=== PATIENT | male | born 1940 | race Hispanic/Latino ===

== ENCOUNTER 2017-10-21 01:52 | Inpatient (IN) | payer OTHER ==
[2017-10-21] MEDS ORDERED: Morphine 4 MG/ML VIAL ONE (03:29)
[2017-10-21] MEDS ORDERED: Ondansetron ODT 4 MG TAB PO PRN (04:31)
[2017-10-21] MEDS ORDERED: Morphine 4 MG/ML VIAL SLOW IVP PRN (04:31)
[2017-10-21] MEDS ORDERED: Dextrose 50% Abboject 50 ML SYRINGE SLOW IVP PRN (04:31)
[2017-10-21] MEDS ORDERED: hydrALAZINE 20 MG/ML VIAL SLOW IVP PRN (04:31)
[2017-10-21] MEDS ORDERED: Ondansetron HCl/PF 4 MG/2 ML Vial IVP PRN ×2 (04:31→16:40)
[2017-10-21] MEDS ORDERED: Dextrose 5% in Water 1,000 ML IV PRN (04:31)
[2017-10-21 04:35] LABS: #Lymphocytes 0.9 thou/uL (1.20-3.40); #Monocytes 0.5 thou/uL (0.11-0.59); #Neutrophils 8.7 thou/uL (1.40-6.50); %Basophils 0.2 % (0.0-1.0); %Eosinophils 0.2 % (0.0-10.0); %Monocytes 4.9 % (0.0-10.0); %Neutrophils 85.7 % (42.0-75.0); Hemoglobin 8.3 g/dL (14.0-18.0); Mean Corpuscular HGB CONC 33.4 g/dL (32.0-36.0); Mean Corpuscular Hemoglobin 31.4 pg (27.0-31.0); Mean Corpuscular Volume 94.2 fl (80.0-94.0); Mean Platelet Volume 6.9 fL (7.4-10.4); Platelet Count 231 thou/uL (130-400); RBC Distribution Width 12.2 % (11.5-14.5); Red Blood Cell (RBC) Count 2.64 mill/uL (4.70-6.10); White Blood Cell (WBC) Count 10.2 thou/uL (4.8-10.8)
[2017-10-21 04:56] LABS: ALT (SGPT) 10 U/L (8-55); AST (SGOT) 15 U/L (5-34); Albumin 3.5 g/dL (3.4-4.8); Alkaline Phosphatase 75 U/L (40-150); Anion Gap 15 mmol/L (10-20); BUN (Urea Nitrogen) 14 mg/dL (8.4-25.7); Bilirubin, Total 0.4 mg/dL (0.2-1.2); Calc. Creatinine Clearance 0 mL/min (70-130); Calcium 9.2 mg/dL (7.8-10.44); Carbon Dioxide 19 mmol/L (23-31); Chloride 97 mmol/L (98-107); Estimated GFR-MDRD 48; Globulin 3.2 g/dL (2.4-3.5); Glucose 301 mg/dL (83-110); Potassium 5.5 mmol/L (3.5-5.1); Protein, Total 6.7 g/dL (5.8-8.1); Sodium 125 mmol/L (136-145)
[2017-10-21] MEDS ORDERED: Insulin Regular 300 UNITS/3 ML VIAL IVP SCH (05:00)
[2017-10-21] MEDS ORDERED: Insulin Regular 300 UNITS/3 ML VIAL ONE (05:06)
[2017-10-21 05:43] LABS: CKMB 1.5 ng/mL (0-6.6); Troponin I Less than 0.010 ng/mL (< 0.028)
[2017-10-21] MEDS ORDERED: Ketorolac Tromethamine 30 MG/ML VIAL IVP SCH (06:00)
--- NOTE | 2017-10-21 06:33 | HP ---
DATE OF ADMISSION: 10/21/2017 ATTENDING PHYSICIAN: Francisco Contreras D.O. TRAUMA ACTIVATION: Not applicable. HISTORY OF PRESENT ILLNESS: Mr. Carlso Mooney is a 77-year-old Italian speaking only prisoner, who presented to [facility] ER status post fall. He was evaluated in the emergency and found to have a l eft femur fracture. Orthopedic Surgery was notified and Trauma Service was asked to admit. Upon my evaluation, the patient has chief complaint of left hip and leg pain. He states that he fell out of his bed at the [facility]. ER documentation indicates that he was in the bottom bunk; however, the pa tient stated that he thought the height of the bed was up to 6-7 feet height. All information was ob tained with the use of a highway engineering teacher phone. ALLERGIES: The patient denies. CURRENT MEDICATIONS: Include Cyanocobalamin 1000 mcg intramuscularly every 4 weeks, metformin 1000 m g p.o. b.i.d., Novolin 10 units q.a.m., Novolin 5 units at bedtime, Novolin 2 units b.i.d. 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 PAST SURGICAL HISTORY: Right BKA, left arm surgery and a left cataract surgery. SOCIAL HISTORY: The patient currently resides in [facility] correctional facility. Denies alcohol or tobacco or illicit drug use. FAMILY HISTORY: Noncontributory. REVIEW OF SYSTEMS: Negative except as indicated in the HPI. PHYSICAL EXAMINATION: VITAL SIGNS: Blood pressure 113/66, pulse 108, respirations 18, O2 sat 100% on room air, temperature 97.7. GENERAL: The patient is resting in bed, in no acute distress. HEAD: Normocephalic, atraumatic. EYES: Pupils PERRL. Extraocular movements are intact. NECK: Supple. Trachea is midline. CHEST: Atraumatic. LUNGS: Normal work of breathing, symmetric rise. Lungs clear to auscultation bilaterally. CARDIOVASCULAR: Regular rate and rhythm. GASTROINTESTINAL: Abdomen is soft, nontender, nondistended. Bowel sounds are positive. BACK: Exam is reported as being within normal limits. MUSCULOSKELETAL: Bilateral upper extremities within normal limits. Right lower extremity BKA noted. Left lower extremity, range of motion limited secondary to pain. There is tenderness to palpation of the left hip and left thigh. LABORATORY DATA AND X-RAY FINDINGS: WBC 10.2, hemoglobin 8.3, hematocrit 24.9, platelet count 231. Chemistries are pending. Official read for chest x-ray is pending. Official read for hip x-ray is p ending. There is evidence of a left intertrochanteric and left femur fracture. Left femur x-ray is significant for the same. ASSESSMENT: 1. Status post fall. 2. Acute traumatic pain. 3. Left femur fracture. 4. Diabetes. 5. Chronic anemia. PLAN: Admit to Trauma Services. The patient will be n.p.o. Orthopedic surgery has been notified an d plans to evaluate the patient for operative intervention to his injury. Perioperative pain managem ent. Postoperative PT and OT. Gastritis and deep venous thrombosis prophylaxis as appropriate. Acc u-Cheks and sliding scale insulin until patient postoperative. Of note, there is a question from the emergency room staff as to whether or not the patient requires chronic oxygen at his [facility]. The patient indicates that he does not wear oxygen on a regular basis, but there has been difficulty com municating with him secondary to language barrier. He is currently on 2 liters nasal cannula. We wi ll wean as appropriate. Plan for admission was discussed with the patient and he vocalized keeleyan ed. All questions were answered at the time of this dictation. Trauma attending has been notified of admission and plan was discussed with him at this time.
--- NOTE | 2017-10-21 08:25 | RAD ---
FRONTAL VIEW CHEST: COMPARISON: No prior comparison. INDICATION: Fall, pain. FINDINGS: There is no lobar consolidation. Cardiac silhouette is enlarged. No significant effusion, or discre te pneumothorax. There is vascular calcification. Osseous degenerative change is seen. IMPRESSION: No lobar consolidation. POS: [facility]
--- NOTE | 2017-10-21 08:26 | RAD ---
LEFT HIP: 2-3 VIEW SERIES INDICATION: Fall with trauma, pain. FINDINGS: Comminuted proximal left femoral fracture is present centered about the proximal diaphysis and extend ing cephalad to the intertrochanteric aspect with avulsion of the lesser trochanter. Femoral head re lashell seated within the acetabulum. IMPRESSION: Comminuted proximal left femoral fracture. POS: [facility]
--- NOTE | 2017-10-21 08:28 | RAD ---
LEFT FEMUR 2 VIEWS: INDICATION: Injury, pain. FINDINGS: There is a comminuted fracture partially visualized which is described on concurrent hip radiograph r eport. Reference separate report for further details. There is degenerative change of the knee inco mpletely assessed. Vascular calcifications are present. IMPRESSION: Comminuted proximal left femoral fracture as is discussed on the concurrent hip radiograph series. POS: [facility]
[2017-10-21] MEDS ORDERED: Famotidine/PF 20 mg/2ml Vial SLOW IVP SCH (09:00)
[2017-10-21] MEDS ORDERED: Propofol 200 MG/20 ML VIAL ONE (09:10)
[2017-10-21] MEDS ORDERED: Glycopyrrolate 0.2 MG/ML 5 ML SYRINGE ONE (09:10)
[2017-10-21] MEDS ORDERED: PHENYLEPHRINE-NS 100 MCG/ML 10 ML SYRINGE ONE (09:10)
[2017-10-21] MEDS ORDERED: Ondansetron HCl/PF 4 MG/2 ML Vial ONE (09:10)
[2017-10-21] MEDS ORDERED: Lidocaine 1% PF 5 ML VIAL ONE (09:10)
[2017-10-21] MEDS ORDERED: Succinylcholine Chloride 20 MG/ML 10 ml SYRINGE FS ONE (09:10)
[2017-10-21] MEDS ORDERED: ePHEDrine/0.9% NaCl/PF SYRINGE 50 mg/10 ml ONE (09:10)
[2017-10-21] MEDS: Acetaminophen 500 MG TAB PO SCH ×4 (10:16→22:39)
[2017-10-21] MEDS: Sodium Chloride 0.9% 1,000 ML IV SCH ×2 (10:20→20:29)
[2017-10-21] MEDS: Senokot S 8.6-50 MG TAB PO SCH ×2 (11:09→20:28)
[2017-10-21] MEDS: HumaLOG 300 UNITS/3 ML VIAL SC PRN (12:47)
[2017-10-21] MEDS ORDERED: Fentanyl 100 MCG/2 ML VIAL ONE ×2 (13:28→14:21)
[2017-10-21] MEDS ORDERED: CEFAZOLIN/Water 2 GM/20 ML SYRINGE SLOW IVP SCH (13:30)
[2017-10-21] MEDS ORDERED: CEFAZOLIN/Water 2 GM/20 ML SYRINGE ONE (14:21)
--- NOTE | 2017-10-21 15:27 | EKG ---
Test Reason : HIP FX Blood Pressure : / mmHG Vent. Rate : 102 BPM Atrial Rate : 102 BPM P-R Int : 128 ms QRS Dur : 092 ms QT Int : 352 ms P-R-T Axes : 036 050 011 degrees QTc Int : 458 ms Sinus tachycardia Otherwise normal ECG Confirmed by FLORINA STAFFORD M.D. ([id number]), commercial production editor OSORIO HUTCHINSON ([id number]) on 10/21/2017 3:26:32 PM Referred By: Confirmed By:FLORINA STAFFORD M.D.
--- NOTE | 2017-10-21 16:33 | RAD ---
RIGHT HIP TWO VIEW 10/21/17 HISTORY: Nail insertion. COMPARISON: Hip radiographs 10/21/17. FINDINGS: Although the order states right hip, these images are the left hip. Satisfactory appearance of the intramedullary nail placement of the proximal spiral fracture of the f emur. No hardware complication. IMPRESSION: Satisfactory postoperative appearance. POS: [facility]
[2017-10-21] MEDS ORDERED: Promethazine HCl 25 MG/ML VIAL SLOW IVP PRN (16:40)
[2017-10-21] MEDS ORDERED: HYDROmorphone 2 MG/ML VIAL SLOW IVP PRN (16:40)
[2017-10-21] MEDS ORDERED: Promethazine HCl 25 MG/ML VIAL IM PRN (16:40)
[2017-10-21 18:15] LABS: Anion Gap 11 mmol/L (10-20); BUN (Urea Nitrogen) 16 mg/dL (8.4-25.7); Calc. Creatinine Clearance 0 mL/min (70-130); Calcium 8.6 mg/dL (7.8-10.44); Carbon Dioxide 20 mmol/L (23-31); Chloride 101 mmol/L (98-107); Estimated GFR-MDRD 60; Glucose 297 mg/dL (83-110); Hemoglobin 10.1 g/dL (14.0-18.0); Platelet Count 259 thou/uL (130-400); Potassium 5.2 mmol/L (3.5-5.1); Sodium 127 mmol/L (136-145)
--- NOTE | 2017-10-21 19:41 | CON ---
DATE OF CONSULTATION: 10/21/2017 HISTORY OF PRESENT ILLNESS: Mr. Mooney is a 77-year-old male who is a prisoner. Patient reports th at he fell out of a bed and had immediate pain and deformity in the left thigh and hip area and inabi lity to ambulate. The patient was brought to the emergency room and x-rays revealed a comminuted dis placed intertrochanteric and subtrochanteric fracture of the left proximal femur. Patient denies any neurologic complaints in the left lower extremity and has no other complaints elsewhere. PAST MEDICAL HISTORY: Medical illnesses, type 2 diabetes, glaucoma, chronic anemia, history of DKA i n the right lower extremity, unspecified breathing abnormalities. PAST SURGICAL HISTORY: BKA on the right. Left arm surgery, left cataract surgery. ALLERGIES: None. CURRENT MEDICATIONS: Cyanocobalamin, metformin, Novolin. PHYSICAL EXAMINATION: GENERAL: The patient is a pleasant male, cooperative with the examination. VITAL SIGNS: The patient is afebrile, pulse 100, respiratory rate 18, blood pressure 103/65, O2 satu ration is 100%. HEENT: Unremarkable for age. Cranial nerves II-XII grossly intact. NECK: Has good range of motion without pain. BACK: Thoracic and lumbar spine nontender to palpation. LUNGS: Clear bilaterally. HEART: Regular rate and rhythm. ABDOMEN: Soft, nontender. Bowel sounds positive. : Not done. EXTREMITIES: The left lower extremity has some deformity in the left thigh area. There is swelling in the left thigh. The patient is able to flex and extend his ankle and toes well, has good sensatio n and good peripheral pulses in the left foot and ankle. LABORATORY DATA: CBC shows white count 10.2, hemoglobin 8.3, hematocrit 24.9. Chemistries: Sodium is low at 125, potassium is high at 5.5, creatinine is 1.43, BUN of 14, glucose 301 at 4:00 this morn ing. The latest one was 261. X-RAYS: X-rays of the left femur shows comminuted fracture in the intertrochanteric and subtrochante michelle region with displacement. The femoral artery is noted to be significantly calcified with running down the medial aspect of the thigh. IMPRESSION: 1. Comminuted intertrochanteric and subtrochanteric fracture of the left femur. 2. Diabetes. 3. History of chronic anemia. PLAN: The patient started off anemic. He will lose blood from the fracture and from the surgery bec ause his hemoglobin is 8.3. I will go ahead and give him 1 unit of packed red blood cells today prio r to surgery. As far as his left femur is concerned, he will require open reduction internal fixatio n of the left femur. We will plan on using a long intramedullary interlocking steff. Potential risks with the condition of surgery include but are not limited to infection, bleeding, pain, damage to blo od vessels or nerves, nonunion or malunion. The patient may require additional surgery, DVT and PE f ormation. The patient's questions were answered through an optical scientist since he primarily speaks [place] j[place]. The patient's questions were answered and they agreed with the procedure.
[2017-10-21] MEDS ORDERED: HYDROcodone/Acetaminophen 10/325 mg Tablet PO PRN ×2 (20:19)
[2017-10-21] MEDS: Sodium Chloride 0.9% 500 ML IV SCH (20:34)
[2017-10-21] MEDS ORDERED: FLU VACC TS2017-18 (>65YR) 0.5 ML SYRINGE IM ONE (21:00)
[2017-10-21] MEDS ORDERED: Prevnar 13-Val Conj/PF 0.5 ML SYRINGE IM ONE (21:00)
--- NOTE | 2017-10-21 21:16 | OP ---
DATE OF OPERATION: 10/21/2017 PREOPERATIVE DIAGNOSIS: Comminuted intertrochanteric and subtrochanteric fracture of the left femur. POSTOPERATIVE DIAGNOSIS: Comminuted intertrochanteric and subtrochanteric fracture of the left femur . PROCEDURE: Interlocking intramedullary rodding of the left femur. SURGEON: Jose Raygoza M.D. ANESTHESIA: General. TECHNIQUE: The patient was given preoperative IV antibiotics, taken to the operating room and placed in supine position. Satisfactory general anesthesia was performed. The patient was then placed in a supine position on the fracture table and traction was applied to well-padded left foot and ankle. C-arm verified good alignment of the comminuted intertrochanteric and subtrochanteric fractures of t he left proximal femur. The lateral aspect of the hip and the entire thigh and proximal leg was ster ilely prepped and draped in the usual fashion. A 2.5 inch incision was made proximal to the greater trochanter and under fluoroscopic visualization, a guide pin was placed through the greater trochante r and was then over reamed with a 9 mm x 340 mm left trochanteric fixation nail was then inserted int o the proximal aspect of the femur down to the distal femur at the level of the proximal aspect of th e patella and do a separate 2 inch incision more on the lateral aspect of the thigh after placing a g uide pin and over reamed in the lateral cortex. A 100 mm helical blade was inserted through the prox imal aspect of the steff and into the femoral neck and head and this was then locked in place through t he locking mechanism in the proximal aspect of the intramedullary steff. Two 5 mm interlocking screws were then inserted distally from lateral to medial. This provided excellent reduction and internal f ixation of all the fractures of the proximal femur. The wounds were then irrigated with antibiotic s olution and were closed using #1 Vicryl for the deep tissue and the skin incisions were closed with s kin kentrell. Sterile dressing was applied. The patient was taken out of traction. He was awakened, extubated, and transferred to recovery room in stable condition. ESTIMATED BLOOD LOSS: 50 mL. COMPLICATIONS: None.
--- NOTE | 2017-10-21 23:35 | PRG ---
DATE OF SERVICE: 10/21/2017 SUBJECTIVE: This is a 77-year-old gentleman admitted earlier today status post fall with femur fract ure. He has recently returned to the floor from the PACU. Upon my evaluation, the patient vocalized no complaint. OBJECTIVE: VITAL SIGNS: 96% on room air, heart rate 110, blood pressure 97/57. GENERAL: Patient resting in bed, in no acute distress. Breathing is nonlabored. GCS is 15. NEUROLOGIC: No focal deficit is noted. ASSESSMENT: Status post mechanical fall. Postop day 0, status post interlocking intramedullary marilyn ing of left femur. Tachycardia associated with hypotension and anemia on presentation. Patient did receive 1 unit of PRBC in the operating room. We will recheck H&H stat. A 500 mL fluid bolus. We w ill also check a serum cortisol. Otherwise, continue care as ordered. Work with physical therapy an d occupational therapy tomorrow. Perioperative pain management.
[2017-10-22] MEDS: HumaLOG 300 UNITS/3 ML VIAL SC PRN ×3 (00:21→18:47)
[2017-10-22] MEDS: Sodium Chloride 0.9% 500 ML IV SCH (00:51)
[2017-10-22] MEDS ORDERED: Insulin Regular 300 UNITS/3 ML VIAL SC SCH (01:30)
[2017-10-22] MEDS ORDERED: Hydrocortisone Sod Succ/PF 100 mg/2 ml Vial IVP SCH (01:30)
[2017-10-22 05:58] LABS: #Lymphocytes 1.7 thou/uL (1.20-3.40); #Monocytes 0.7 thou/uL (0.11-0.59); #Neutrophils 10.2 thou/uL (1.40-6.50); %Eosinophils 0.1 % (0.0-10.0); %Lymphocytes 13.2 % (21.0-51.0); %Monocytes 5.3 % (0.0-10.0); %Neutrophils 81.4 % (42.0-75.0); Hemoglobin 9.2 g/dL (14.0-18.0); Mean Corpuscular HGB CONC 34.1 g/dL (32.0-36.0); Mean Corpuscular Hemoglobin 31.3 pg (27.0-31.0); Mean Corpuscular Volume 91.8 fl (80.0-94.0); Mean Platelet Volume 6.7 fL (7.4-10.4); Platelet Count 258 thou/uL (130-400); Red Blood Cell (RBC) Count 2.94 mill/uL (4.70-6.10); White Blood Cell (WBC) Count 12.5 thou/uL (4.8-10.8)
[2017-10-22] MEDS: Acetaminophen 500 MG TAB PO SCH ×3 (06:12→18:52)
[2017-10-22] MEDS: Hydrocortisone Sod Succ/PF 100 mg/2 ml Vial IVP SCH ×2 (06:13→15:34)
[2017-10-22 06:24] LABS: Anion Gap 11 mmol/L (10-20); BUN (Urea Nitrogen) 13 mg/dL (8.4-25.7); Calc. Creatinine Clearance 64 mL/min (70-130); Carbon Dioxide 21 mmol/L (23-31); Chloride 101 mmol/L (98-107); Estimated GFR-MDRD 64; Glucose 213 mg/dL (83-110); Magnesium 1.9 mg/dL (1.6-2.6); Phosphorus 2.4 mg/dL (2.3-4.7); Potassium 4.3 mmol/L (3.5-5.1); Sodium 129 mmol/L (136-145)
[2017-10-22] MEDS: Enoxaparin Sodium 30 MG/0.3 ML SYRINGE SC SCH (09:14)
[2017-10-22] MEDS: Senokot S 8.6-50 MG TAB PO SCH ×2 (09:15→20:37)
[2017-10-22] MEDS: NPH, Human Insulin Isophane 300 UNIT/3 ML VIAL SC SCH ×2 (09:27→20:39)
[2017-10-22] MEDS: Sodium Chloride 0.9% 1,000 ML IV SCH (12:15)
--- NOTE | 2017-10-22 14:39 | PRG ---
DATE OF SERVICE: 10/22/2017 SUBJECTIVE: Mr. Mooney is 1 day status post interlocking intramedullary rodding of the comminuted l eft proximal femur fracture. The patient was able to get up with physical therapy earlier today and sit on the side of the bed for over 1 hour. He is currently comfortably resting in bed, sleeping. PHYSICAL EXAMINATION: VITAL SIGNS: Temperature 98.1, pulse 94, respiratory rate 12, O2 saturation 99%, blood pressure 137/ 83. LABORATORY DATA: CBC this morning, WBC is 12.5, hemoglobin 9.2, hematocrit 27. Chemistries show sod ium slightly improved at 129, potassium is now normal at 4.3, creatinine normal at 1.12, BUN 13, gluc ose 213. PLAN: The patient will continue with physical and occupational therapy to help him mobilize, get out of bed, able to transfer in and out of bed into a wheelchair. The patient may partially weightbear on the left lower extremity.
[2017-10-22] MEDS ORDERED: Dextrose 5% in Water 1,000 ML IV PRN (20:11)
[2017-10-22] MEDS ORDERED: Dextrose 50% Abboject 50 ML SYRINGE SLOW IVP PRN (20:11)
[2017-10-22] MEDS ORDERED: Insulin Regular 300 UNITS/3 ML VIAL IVP SCH (20:15)
--- NOTE | 2017-10-22 20:15 | PRG ---
DATE OF SERVICE: 10/22/2017 SUBJECTIVE: The patient is hospital day #2, postop day #1, status post fall in a half-way facility. T he patient was brought to the emergency department, evaluated and examined and noted to have a hip fr acture yesterday. He was taken to the operating room and underwent intramedullary rodding of his lef t femur. The patient tolerated this procedure well, but overnight, he did become hypotensive. Labor atory evaluation showed that he had a cortisol level of 3.7, so the patient was given a bolus of hydr ocortisone and then a maintenance dose which seemed to correct his blood pressure overnight. The pat ient does occasionally have dips into the 90s, but otherwise, remained stable and asymptomatic. This morning, the patient is tolerating a diet. He states his pain is controlled. He has not yet starte d working with physical and occupational therapy. 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 The guards are going to find out if the patient has a prosthesis for this, but regardless, this will make physical therapy a little bit more challenging. The patient is currently medically stable and has undergone his procedure and is cleared for transfer to [facility] to continue his care. PHYSICAL EXAMINATION: VITAL SIGNS: Temperature is 98.5, heart rate 94, respirations 16, blood pressure 98/63. GENERAL: The patient is resting comfortably in bed. He is alert and oriented x3. His [place] coma scale is 15. LUNGS: Clear to auscultation bilaterally. CARDIOVASCULAR: Regular rate and rhythm. ABDOMEN: Soft, flat, nontender with active bowel sounds. EXTREMITIES: Neurovascularly intact. His postop dressings are clean, dry, and intact. LABORATORY DATA: White blood cell count 12.5, hemoglobin 9.2, hematocrit 27, platelets 258. Sodium 129, potassium 4.3, chloride 101, CO2 of 21, BUN 13, creatinine 1.12, glucose 213, magnesium 1.9, kary sphorus 2.4. There are no radiographs to review this morning. ASSESSMENT AND PLAN: 1. Status post fall. 2. Left femur fracture, status post intramedullary nailing of same. 3. Hyponatremia, resolving. Plan will be to continue to work with physical and occupational therapy as much as possible and await transfer to [facility]. This evaluation was done with Dr. Contreras this morning during rounds.
[2017-10-22] MEDS ORDERED: Famotidine/PF 20 mg/2ml Vial SLOW IVP SCH (21:00)
--- NOTE | 2017-10-22 23:42 | PRG ---
DATE OF SERVICE: 10/22/2017 SUBJECTIVE: The patient is postop day #1 status post hip fracture repair. The patient was hypotensi ve overnight last night. Steroids were started. His blood pressures appear to stabilize throughout the day. Upon my evaluation, the patient has no complaint. OBJECTIVE: VITAL SIGNS: Reviewed and stable. GENERAL: The patient is resting in bed in no acute distress. LUNGS: Breathing is nonlabored. LABORATORY DATA: Most recent glucose 363. ASSESSMENT AND PLAN: Hyperglycemia in the setting of insulin-dependent diabetes. The patient is rec eiving steroid therapy for adrenal insufficiency. This has likely caused the increase in his blood s ugars. We will change sliding scale insulin to aggressive. The patient is on b.i.d. insulin. We wi ll add one time dose of insulin at this time. Continue frequent Accu-Cheks. Otherwise, continue car es ordered. Continue to monitor.
[2017-10-23] MEDS: Hydrocortisone Sod Succ/PF 100 mg/2 ml Vial IVP SCH ×4 (00:27→20:22)
[2017-10-23] MEDS: Acetaminophen 500 MG TAB PO SCH ×5 (00:27→20:23)
[2017-10-23] MEDS: HumaLOG 300 UNITS/3 ML VIAL SC PRN ×5 (01:52→20:42)
[2017-10-23] MEDS: Enoxaparin Sodium 30 MG/0.3 ML SYRINGE SC SCH (10:07)
[2017-10-23] MEDS: NPH, Human Insulin Isophane 300 UNIT/3 ML VIAL SC SCH ×2 (10:14→20:41)
[2017-10-23] MEDS: Senokot S 8.6-50 MG TAB PO SCH (10:15)
[2017-10-23 15:55] VITALS: TEMP 97.6
[2017-10-23] MEDS ORDERED: Famotidine 20 MG TAB PO SCH (21:00)
[2017-10-23 21:15] VITALS: BP 127/72
--- NOTE | 2017-10-24 15:44 | RAD ---
LEFT FEMUR INTRAOPERATIVE FLUOROSCOPY TWO VIEWS: History: Left femur fracture. FINDINGS/IMPRESSION: Intraoperative fluoroscopy was provided for internal fixation as performed by Dr. Raygoza. Multiple s pot fluoroscopic images show a long medullary steff and compression screw to transfix the mid femoral f racture, in anatomic alignment. Fluoro time equals 83 seconds. POS: [facility]
--- NOTE | 2017-10-26 19:42 | EKG ---
Test Reason : PREOP Blood Pressure : / mmHG Vent. Rate : 103 BPM Atrial Rate : 103 BPM P-R Int : 144 ms QRS Dur : 084 ms QT Int : 326 ms P-R-T Axes : 057 048 045 degrees QTc Int : 427 ms Sinus tachycardia Otherwise normal ECG When compared with ECG of 21-OCT-2017 03:48, Nonspecific T wave abnormality has replaced inverted T waves in Inferior leads Confirmed by SUSANA RODGERS ([id number]) on 10/26/2017 7:42:17 PM Referred By: TAMAR Confirmed By:SUSANA RODGERS
== END 2017-10-23 20:43 | disposition short-term general hospital (02) | DRG 481 ==
LOC: EEVIPCON 01:52 → ERS 01:52 → ERHOLD 04:31 → SJJU 07:53 → SURG A 10-23 07:19
PROVIDERS: ADMIT Surgery; ATTEND Surgery
PROC: 0QS736Z Reposition Left Upper Femur with Intramedullary Internal Fixation Device, Percutaneous Approach (ICD-10-PCS; principal; 2017-10-21)
PROC: 30233N1 Transfusion of Nonautologous Red Blood Cells into Peripheral Vein, Percutaneous Approach (ICD-10-PCS; 2017-10-21)
DX: S72.142A Displaced intertrochanteric fracture of left femur, initial encounter for closed fracture (principal); E27.40 Unspecified adrenocortical insufficiency; I95.89 Other hypotension; E11.65 Type 2 diabetes mellitus with hyperglycemia; E87.1 Hypo-osmolality and hyponatremia; D64.9 Anemia, unspecified; H40.9 Unspecified glaucoma; G89.11 Acute pain due to trauma; S72.22XA Displaced subtrochanteric fracture of left femur, initial encounter for closed fracture; W06.XXXA Fall from bed, initial encounter; Z89.511 Acquired absence of right leg below knee; I70.202 Unspecified atherosclerosis of native arteries of extremities, left leg
CPT/HCPCS: 36415; 36416; 36430; 71045; 76001; 80048; 80053; 82533; 82553; 83735; 84100; 84484; 85025; 86850; 86900; 86901; 93005; 93010; 96361; 96374; 96375; C1713; C1769; G0390; G8978-GP-CL; G8979-GP-CJ; G8987-GO-CK; G8988-GO-CI; J1650; J1720; J1815; J2001; J2270; J2405; J2704; J3010; P9016; S0028